=== PATIENT | female | born 1975 | race Caucasian/White ===

== ENCOUNTER 2017-03-27 10:33 | Day surgery (SDC) | payer BC ==
[~2017-03-27] VITALS: Ht 160 cm; Wt 68.0 kg
[~2017-03-27 10:33] MED LIST: CELEXA40 MG PO; CINNAMON500 MG PO; PROTONIX40 MG PO
[2017-03-27 11:15] VITALS: BP 109/64
[2017-03-27] MEDS ORDERED: NORCO 5/3251 TABLET PO (13:07)
[2017-03-27 14:15] VITALS: BP 99/61
[2017-03-27 15:25] VITALS: BP 116/58
[2017-03-27 16:30] VITALS: BP 117/81
== END 2017-03-27 16:45 | disposition home or self-care (01) ==
LOC: SDC
PROC: 0FT44ZZ Resection of Gallbladder, Percutaneous Endoscopic Approach (ICD-10-PCS; principal; 2017-03-27)
DX: K80.10 Calculus of gallbladder with chronic cholecystitis without obstruction (principal); K76.89 Other specified diseases of liver; K21.9 Gastro-esophageal reflux disease without esophagitis
CPT/HCPCS: 88304; J0131; J0690; J1100; J1170; J1885; J2175; J2250; J2405; J2710; J3010